=== PATIENT | female | born 1945 | race Caucasian/White ===

== ENCOUNTER 2017-07-03 08:49 | Day surgery (SDC) | payer MEDICARE, OTHER ==
[~2017-07-03] VITALS: Ht 165.1 cm; Wt 44.9 kg
== END 2017-07-03 10:45 | disposition home or self-care (01) ==
LOC: DSVR 08:49 → OPS 08:49 → DS 10:00 → OPS 10:45
PROC: 08RK3JZ Replacement of Left Lens with Synthetic Substitute, Percutaneous Approach (ICD-10-PCS; principal; 2017-07-03)
DX: H25.12 Age-related nuclear cataract, left eye (principal); F17.210 Nicotine dependence, cigarettes, uncomplicated; G43.909 Migraine, unspecified, not intractable, without status migrainosus; Z90.710 Acquired absence of both cervix and uterus
CPT/HCPCS: 140

== ENCOUNTER 2017-08-26 07:52 | Day surgery (SDC) | payer MEDICARE, OTHER ==
[~2017-08-26] VITALS: Ht 165.1 cm; Wt 45.8 kg
== END 2017-08-26 09:45 | disposition home or self-care (01) ==
LOC: OPS 07:52 → DS 07:52 → OPS 09:00
PROVIDERS: Ophthalmology
PROC: 08RJ3JZ Replacement of Right Lens with Synthetic Substitute, Percutaneous Approach (ICD-10-PCS; principal; 2017-08-26 09:00)
DX: H25.11 Age-related nuclear cataract, right eye (principal); F17.210 Nicotine dependence, cigarettes, uncomplicated; G43.909 Migraine, unspecified, not intractable, without status migrainosus; Z90.710 Acquired absence of both cervix and uterus
CPT/HCPCS: 140

== ENCOUNTER 2021-04-25 07:46 | Day surgery (SDC) | payer MEDICARE, OTHER ==
[~2021-04-25] VITALS: Ht 170.2 cm; Wt 43.0 kg
[~2021-04-25 07:46] MED LIST: ALLEGRA ALLERG180 MG PO; BIOTIN800 MCG PO; K-TAB ER20 MEQ PO; MAGNESIUM250 M1 PO; SUPER B COMPLE1 EACH PO; VITAMIN C250 MG PO; VITAMIN D3125 MC1 PO
--- NOTE | 2021-04-25 10:47 | NUR ---
04/25/21 Mona7 Karina Underwood 1035-PATIENT ARRIVED TO PACU ON 2L NC RR EVEN LAYING LEFT LATERAL. PATIENT AWAKE DROWSY DENIES PAIN OR NAUSEA. ABDOMEN SOFT. IVF INFUSING. PATIEN ENCOURAGED TO TAKE DEEP BREATHES APNEA WHEN FALLS ASLEEP. PATIENT AROUSES EASILY TAKES DEEP BREATHES. PASSING GAS. 1045-PATIENT REPOSITIONED TO BACK BP'S 85 SYSTOLIC DENIES DIZZYNESS CLOSES EYES. IVF INFUSING.
--- NOTE | 2021-04-25 15:22 | NUR ---
1225: CHECKED PATIENT. PATIENT SLEEPING. RESPIRATIONS EVEN AND UNLABORED. 1240: VS CHECKED. DENIES PAIN. TOLERATED PUDDING AND WATER. CALL LIGHT WITHIN REACH. 1320: DISCHARGE INSTRUCTIONS GIVEN TO PATIENT. IV DC'D WNL. TIP INTACT. DRESSING APPLIED. PATIENT ASSISTED OOB. GAIT STEADY. PATIENT GETTING DRESSED. 1337: PATIENT DISCHARGED TO HOME WITH VIA WHEELCHAIR.
--- NOTE | 2021-04-26 07:11 | OR ---
[facility] [address] [place], [place] [address] Signed DATE OF OPERATION: 04/25/2021 SURGEON: Hetal Sharpe MD PREOPERATIVE DIAGNOSIS: Positive Cologuard test (December 2020). POSTOPERATIVE DIAGNOSES: 1. Long redundant colon. 2. [id number] internal hemorrhoids. 3. A 10 mm sessile polyp, distal right colon (tattoo). 4. 3-5 mm polyps at 65 cm, 25 cm, 20 cm, and 4 cm. PROCEDURES: Colonoscopy with snare polypectomy, hot biopsy, and injection tattoo. ESTIMATED BLOOD LOSS: None. INDICATIONS: Reena is a 75-year-old female, who was asked to see me for her initial colonoscopy. She had a positive Cologuard test in December 2020. She has no lower GI complaints. She sees no dark or red blood per rectum. There is no family history of colon cancer or polyps. She mentioned, I performed a colonoscopy for her a few years ago. Incredibly, she has a significant amount of detail associated with that colonoscopy. In the office I had given her a pamphlet on colonoscopy. We reviewed the nature of the test. She understands there is risk including, but not limited to gas bloating, crampy abdominal pain, bleeding, perforation requiring surgery, and missed diagnosis. We also reviewed the need for IV conscious sedation. She had expressed understanding and wished to proceed. DESCRIPTION OF PROCEDURE: Reena was taken into our endoscopy suite and placed in the left lateral decubitus position. She was given a total of 6 mg of Versed and 125 mcg of fentanyl to cover the case. A digital rectal exam was performed and this was unremarkable. The adult colonoscope had been introduced and advanced under direct visualization the camera. Reena is quite thin with a body mass index of 15. It took additional sedation abdominal compression in order to advance the scope. We had to rotate Reena twice into the supine position and back into the left lateral decubitus position in order to advance the scope into the cecum itself. Her transverse colon this long, redundant and Electronically Signed By: HETAL SHARPE MD 04/26/21 0711 PATIENT NAME: REENA JAEGER MELBA OPERATIVE REPORT DATE OF : 49 REPORT #: [id number] PHYSICIAN: HETAL SHARPE MD PCP: PEREZ PEDRAZA DO REPORT IS CONFIDENTIAL AND NOT TO BE RELEASED WITHOUT AUTHORIZATION [facility] [address] [place], [place] [address] Signed it was difficult getting around the hepatic flexure as well. Fortunately, her prep was quite good. We could easily see the appendiceal orifice and ileocecal valve. The scope was then slowly withdrawn. We took pictures throughout for photodocumentation. Towards the end of the procedure, several polyps did not show up as the computer failed to capture those pictures. The above-mentioned polyps were removed with the help of hot biopsy forceps. We used our snare and the hot biopsy forceps at the distal right colon. We injected tattoo prior to using the snare. The entire polyp was thus removed. There was no diverticulosis. We had just enough room in her rectum to rotate the scope. She does have minimal to moderate internal hemorrhoids. After this, the gas was suctioned out. The colonoscope was removed. Overall, Reena tolerated the procedure quite well. RECOMMENDATIONS: Reena will follow up in my office in 7 to 14 days to review her results. She might consider a monitored anesthesia care in the future given difficulties we described above. Hetal Sharpe MD ALB/MODL /[id number] cc: MD Perez Naranjo DO Copies: HETAL SHARPE MD, ARIAN DO ~ Electronically Signed By: HETAL SHARPE MD 04/26/21 0711 PATIENT NAME: REENA JAEGER BANNER OPERATIVE REPORT DATE OF : 49 REPORT #: [id number] PHYSICIAN: HETAL SHARPE MD PCP: PEREZ PEDRAZA DO REPORT IS CONFIDENTIAL AND NOT TO BE RELEASED WITHOUT AUTHORIZATION
--- NOTE | 2021-04-26 17:25 | PATH ---
[facility] [address] [facility] [place] [place] [address] Signed SPECIMEN(S): A COLON POLYP AT 20 CM SPECIMEN(S): B DISTAL RIGHT COLON POLYP SPECIMEN(S): C COLON POLYP AT 65 CM SPECIMEN(S): D COLON POLYP AT 25 CM SPECIMEN(S): E COLON POLYP AT 4 CM SPECIMEN SOURCE: A. COLON POLYP AT 20 CM B. DISTAL RIGHT COLON POLYP C. COLON POLYP AT 65 CM D. COLON POLYP AT 25 CM E. COLON POLYP AT 4 CM CLINICAL HISTORY: Positive Cologuard test. Postop: Polyps. MICROSCOPIC DESCRIPTION: Histologic sections of all submitted blocks are examined by light microscopy. These findings, together with the gross examination, support the pathologic diagnosis. FINAL PATHOLOGIC DIAGNOSIS: A. Colon, polyp at 20 cm, polypectomy: - Favor cauterized tubular adenoma (one fragment). - Hyperplastic polyp (one fragment). - Negative for malignancy. - See comment. B. Colon, distal right, polyp, polypectomy: - Fragments of hyperplastic polyp. - Negative for dysplasia or malignancy. C. Colon, polyp at 65 cm, polypectomy: - Tubular adenoma. - Negative for high-grade dysplasia or malignancy. D. Colon, polyp at 25 cm, polypectomy: - Hyperplastic polyp. - Negative for dysplasia or malignancy. E. Colon, polyp at 4 cm, polypectomy: - Fragments of hyperplastic polyp. - Negative for dysplasia or malignancy. COMMENT: Regarding specimen A: One of the three fragments of colonic mucosa PATIENT NAME: REENA JAEGER MELBA PATHOLOGY DATE OF : 49 REPORT #: [id number] PHYSICIAN: OLIVIA HERRERA PCP: ADRY PEDRAZA DO REPORT IS CONFIDENTIAL AND NOT TO BE RELEASED WITHOUT AUTHORIZATION [facility] [address] [place], [place] [address] Signed demonstrates changes consistent with low-grade dysplasia, however the surface of the fragment is severely cauterized, precluding definitive histologic assessment. NAL:cml:C2NR GROSS DESCRIPTION: Five specimens are received in five containers, labeled "EB." A. The specimen, labeled "EB, colon polyp at 20 cm," is received in formalin and consists of three george soft tissue fragment(s) that measure 0.2-0.3 cm in greatest dimension. The specimen is entirely submitted in cassette (A1). B. The specimen, labeled "EB, distal right colon polyp," is received in formalin and consists of five george soft tissue fragment(s) that measure 0.1-0.4 cm in greatest dimension. The specimen is entirely submitted in cassette (B1). C. The specimen, labeled "EB, colon polyp at 65 cm," is received in formalin and consists of one george soft tissue fragment that measures 0.3 cm in greatest dimension. The specimen is entirely submitted in cassette (C1). D. The specimen, labeled "EB, colon polyp at 25 cm," is received in formalin and consists of one george soft tissue fragment that measures 0.1 cm in greatest dimension. The specimen is entirely submitted in cassette (D1). E. The specimen, labeled "EB, colon biopsy at 4 cm," is received in formalin and consists of three george soft tissue fragment(s) that measure 0.2-0.3 cm in greatest dimension. The specimen is entirely submitted in cassette (E1). JS (under the direct supervision of a pathologist) The Gross Description was prepared using a voice recognition system. The report was reviewed for accuracy; however, sound-alike word errors, addition and/or deletions may occur. If there is any question about this report, please contact Client Services. PERFORMING LABORATORY: The technical component was performed by [facility], [address] [place] [id number] (Metal Control Worker: Kayla Gregory MD; CLIA# [id number]). Professional interpretation was performed by [facility], [address] [address] (CLIA# [id number]). Diagnostician: Mimi Watson MD PATIENT NAME: REENA JAEGER MELBA PATHOLOGY DATE OF : 49 REPORT #: [id number] PHYSICIAN: OLIVIA HERRERA PCP: ADRY PEDRAZA DO REPORT IS CONFIDENTIAL AND NOT TO BE RELEASED WITHOUT AUTHORIZATION [facility] [address] [place], [place] [address] Signed Pathologist Electronically Signed 04/26/2021 Copies: ~ PATIENT NAME: REENA JAEGER MELBA PATHOLOGY DATE OF : 49 REPORT #: [id number] PHYSICIAN: OLIVIA HERRERA PCP: ADRY PEDRAZA DO REPORT IS CONFIDENTIAL AND NOT TO BE RELEASED WITHOUT AUTHORIZATION
== END 2021-04-25 13:37 | disposition home or self-care (01) ==
LOC: DS 07:46 → OPS 07:46 → DS 09:00 → OPS 09:00
PROVIDERS: ATTEND Colon & Rectal Surgery
PROC: 3E0H8KZ Introduction of Other Diagnostic Substance into Lower GI, Via Natural or Artificial Opening Endoscopic (ICD-10-PCS; 2021-04-25)
PROC: 0DBM8ZX Excision of Descending Colon, Via Natural or Artificial Opening Endoscopic, Diagnostic (ICD-10-PCS; principal; 2021-04-25 09:00)
DX: D12.4 Benign neoplasm of descending colon (principal); K64.8 Other hemorrhoids; Q43.8 Other specified congenital malformations of intestine; K21.9 Gastro-esophageal reflux disease without esophagitis; M85.80 Other specified disorders of bone density and structure, unspecified site; J44.9 Chronic obstructive pulmonary disease, unspecified; F17.210 Nicotine dependence, cigarettes, uncomplicated; Z20.822 Contact with and (suspected) exposure to COVID-19; Z85.828 Personal history of other malignant neoplasm of skin; Z79.890 Hormone replacement therapy
CPT/HCPCS: 88305; 99153; G0500; J2250; J3010; J7121

== ENCOUNTER 2021-07-09 19:02 | Emergency (ER) | payer MEDICARE, OTHER ==
[~2021-07-09] VITALS: Ht 170.2 cm; Wt 42.6 kg
--- NOTE | ~2021-07-09 | EKG ---
[facility] [facility] [address] [facility] [place], [place] [address] Draft EK completed, results pending confirmation PATIENT NAME: REENA JAEGER MELBA Electrocardiogram DATE OF : 49 PHYSICIAN: PRELIMINARY REPORT #: [id number] REPORT IS CONFIDENTIAL AND NOT TO BE RELEASED WITHOUT AUTHORIZATION
[2021-07-09] MEDS ORDERED: GERI-KOT8.6 MG PO (21:03)
[2021-07-09] MEDS ORDERED: IBUPROFEN400 MG PO (21:03)
[2021-07-09] MEDS ORDERED: OXYCODONE HCL5 MG PO (21:03)
== END 2021-07-09 22:05 | disposition short-term general hospital (02) ==
LOC: ED 19:02
DX: G45.9 Transient cerebral ischemic attack, unspecified (principal); K66.8 Other specified disorders of peritoneum; N17.9 Acute kidney failure, unspecified; E87.1 Hypo-osmolality and hyponatremia; J93.9 Pneumothorax, unspecified; R29.703 NIHSS score 3; Y90.0 Blood alcohol level of less than 20 mg/100 ml; Z20.822 Contact with and (suspected) exposure to COVID-19; F17.200 Nicotine dependence, unspecified, uncomplicated; Z79.899 Other long term (current) drug therapy
CPT/HCPCS: 70450; 70496; 70498; 71045; 74176; 80053; 81001; 84484; 85025; 85610; 85730; 93005; 93010; 99285-25; C9803; G0480; J7030; Q9967; U0003